=== PATIENT | male | born 1960 | race Caucasian/White ===

== ENCOUNTER 2022-07-04 19:41 | Emergency (ER) | payer SELFPAY ==
[~2022-07-04] VITALS: Ht 165.1 cm; Wt 90.9 kg
[2022-07-04 20:12] VITALS: BP 156/94
== END 2022-07-05 01:50 | disposition home or self-care (01) ==
LOC: ER 19:41
DX: S01.01XA Laceration without foreign body of scalp, initial encounter (principal); Z98.890 Other specified postprocedural states; W22.09XA Striking against other stationary object, initial encounter; Y93.89 Activity, other specified; Y92.520 Airport as the place of occurrence of the external cause
CPT/HCPCS: 12002; 99282; Z7610